=== PATIENT | male | born 1970 | race Caucasian/White ===

== ENCOUNTER 2017-11-17 10:18 | Day surgery (SDC) | payer BC ==
[~2017-11-17 10:18] MED LIST: Buffered Lidocaine 0.9% SYRIN* 5 ML/SYR SYRINGE INTRADERM ONE; Dexamethasone TAB* 4 MG PO ONE; DiMENhydriNATE IV* 50 MG/ML VIAL IV PUSH PRN; Famotidine IV* 10 MG/ML 2 ML (20 mg) IV ONE; Morphine INJ* 2 MG/ML 1 ML CARPUJECT IV PRN; Naloxone* 0.4 MG/ML 1 ML VIAL IV PRN; Ondansetron TAB* 4 MG PO ONE; PROCHLORPERAZINE INJ 5 MG/ML 2 ML VIAL IV PRN; Scopolamine 1.5 mg* PATCH TRANSDERM PRN; fentaNYL* 50 MCG/ML 2 ML VIAL (100 MCG VIAL) IV PRN; oxyCODONE/Acetamin 5/325 MG* TAB PO PRN
[2017-11-17] MEDS ORDERED: Dexamethasone TAB* 4 MG ONE (10:30)
[2017-11-17] MEDS ORDERED: Famotidine IV* 10 MG/ML 2 ML (20 mg) ONE (10:30)
[2017-11-17] MEDS ORDERED: Ondansetron ODT TAB* 4 MG ONE (10:30)
[2017-11-17] MEDS ORDERED: Buffered Lidocaine 0.9% SYRIN* 5 ML/SYR SYRINGE ONE (10:31)
[2017-11-17] MEDS ORDERED: Midazolam* 1 MG/ML 5 ML VIAL (5 MG) ONE (10:49)
[2017-11-17] MEDS ORDERED: fentaNYL* 50 MCG/ML 2 ML VIAL (100 MCG VIAL) ONE (10:49)
[2017-11-17] MEDS ORDERED: Oxymetazoline 0.05% NASAL SPR* 15 ML BTL ONE (11:12)
[2017-11-17] MEDS ORDERED: Lidocaine 4% TOPICAL* 50 ML TOP.SOLN ONE (11:12)
[2017-11-17] MEDS ORDERED: Lidocain 1% EPI 1:100,000 * 30 ML MDV ONE (11:12)
[2017-11-17] MEDS ORDERED: Triamcinolone Acetonide* 40 MG/ML 1 ML VIAL ONE (12:29)
[2017-11-17] MEDS ORDERED: oxyCODONE/Acetamin 5/325 MG* TAB ONE (13:28)
[2017-11-17 13:49] VITALS: BP 124/96
--- NOTE | 2017-11-18 07:02 | OP ---
DATE OF OPERATION: 11/17/17 - SDS DATE OF : 66 SURGEON: Aidan Ortega MD PRE-OP DIAGNOSIS: Chronic pansinusitis with nasal polyposis. POST-OP DIAGNOSIS: Chronic pansinusitis with nasal polyposis. OPERATIVE PROCEDURE: Bilateral endoscopic sinus surgery with image guidance, bilateral maxillary antrostomy with debridement of polyps, bilateral anteroposterior ethmoidectomy and left sphenoidotomy under laryngeal mask airway anesthesia. COMPLICATIONS: None. DISPOSITION: Good. SPECIMEN: Left and right sinus contents. DESCRIPTION OF PROCEDURE: The patient was taken to the operating room, placed in the supine position on the operating table. General anesthesia maintained with laryngeal mask airway anesthesia. He was turned and draped for the surgery and then he was registered to the [employer] image-guided sinus surgery set. His nose was packed with cottonoids impregnated with oxymetazoline and 4% lidocaine. After several minutes, these were removed and using the nasal endoscope, the nasal cavities were examined and used for surgery. He had polyps in his ostiomeatal units bilaterally, completely obstructing on the left side. His uncinate processes and his middle turbinates were injected with 1% lidocaine with epinephrine. Surgery was done bilaterally using the Blakesley to remove the polyps, the sickle knife to make a cut on the anterior uncinate, this was removed with Blakesley and polyps removed from the maxillary sinuses. The ostia were debrided and widened. The anterior ethmoids was entered with curettes and debrided. The grand lamella was entered into the posterior ethmoid and on the left side I went back into the sphenoid, and removed some polyps from the ostium of the sphenoid. Once the surgery was completed, Stammberger Sinu-Foam mixed with water and Kenalog was placed bilaterally. I used the image-guided seeker and suctions to verify location and entry into the ethmoids and left sphenoid. The patient tolerated this procedure well, no complications, transferred to the recovery room in stable condition. [id number]/CPS #: [id number] MTDD
[2017-11-20] MEDS ORDERED: Scopolamine PATCH Remove* 1 NOTE MISC PATCH OFF ONE (05:44)
== END 2017-11-17 13:50 | disposition home or self-care (01) ==
LOC: OR 10:18
PROVIDERS: ATTEND Otolaryngology
DX: J32.4 Chronic pansinusitis (principal); J33.8 Other polyp of sinus; Z87.891 Personal history of nicotine dependence
CPT/HCPCS: 88305; A9270-GY; J2250; J3010; J3301; J8540

== ENCOUNTER 2019-06-06 12:14 | Emergency (ER) | payer BC ==
[2019-06-06 13:18] VITALS: BP 123/76
--- NOTE | 2019-06-06 13:37 | UC ---
Respiratory Complaint HPI - HPI Summary HPI Summary: cough x 5 days cough is productive with yellow sputum worse with deep breathing, better with rest, + nasal congestion , pnd, wheezing, no fever, + chills body aches - History of Current Complaint Chief Complaint: UCRespiratory Stated Complaint: COUGH NASUA FEVER Time Seen by Provider: 06/06/19 13:09 Hx Obtained From: Patient Onset/Duration: Gradual Onset, Lasting Days - 5, Still Present Timing: Constant Severity Initially: Moderate Severity Currently: Moderate Pain Intensity: 0 Pain Scale Used: 0-10 Numeric Character: Cough: Productive Aggravating Factors: Exertion, Deep Breaths Alleviating Factors: Nothing Associated Signs And Symptoms: Positive: Chills, Wheezing, URI, Nasal Congestion. Negative: Dyspnea, Fever, Pleuritic Chest Pain - Allergies/Home Medications Allergies/Adverse Reactions: Allergies Allergy/AdvReac Type Severity Reaction Status Date / Time Penicillins Allergy Unknown Unknown Verified 06/06/19 13:13 Reaction Details PMH/Surg Hx/FS Hx/Imm Hx Respiratory History: Asthma Other History Of: Negative For: HIV - Surgical History Surgical History: Yes Surgery Procedure, Year, and Place: Right Bicep Repair, 2008 [facility] [place] - Family History Known Family History: Positive: Hypertension, Other - asthma Negative: Diabetes - Social History Alcohol Use: None Alcohol Amount: 1 DRINK MONTHLY Substance Use Type: None Smoking Status (MU): Never Smoked Tobacco - Immunization History Most Recent Influenza Vaccination: Not the Season Review of Systems All Other Systems Reviewed And Are Negative: Yes Constitutional: Positive: Chills, Fatigue Skin: Positive: Negative Eyes: Positive: Negative ENT: Positive: Sore Throat, Nasal Discharge Respiratory: Positive: Cough Cardiovascular: Positive: Negative Is Patient Immunocompromised?: No Physical Exam Triage Information Reviewed: Yes Appearance: Well-Appearing, No Pain Distress, Well-Nourished Vital Signs: Initial Vital Signs Temp 98.6 F 06/06/19 13:14 Pulse 84 06/06/19 13:14 Resp 16 06/06/19 13:14 BP 123/76 06/06/19 13:14 Pulse Ox 98 06/06/19 13:14 Vital Signs Reviewed: Yes Eye Exam: Normal Eyes: Positive: Conjunctiva Clear ENT: Positive: Normal ENT inspection, Hearing grossly normal, Nasal congestion, Nasal drainage, TMs normal Neck: Positive: Supple, Nontender, No Lymphadenopathy Respiratory: Positive: Chest non-tender, Lungs clear, Normal breath sounds Cardiovascular: Positive: RRR, No Murmur, Pulses Normal Respiratory Course/Dx - Differential Dx/Diagnosis Provider Diagnosis: Bronchitis Discharge ED - Sign-Out/Discharge Documenting (check all that apply): Patient Departure All imaging exams completed and their final reports reviewed: No Studies - Discharge Plan Condition: Stable Disposition: HOME Prescriptions: predniSONE 20 mg TAB [Deltasone 20 MG TAB*] 40 mg PO DAILY #10 tab Patient Education Materials: Acute Bronchitis (ED) Referrals: No Primary Care Phys,NOPCP [Primary Care Provider] - If Needed - Billing Disposition and Condition Condition: STABLE Disposition: Home
== END 2019-06-06 13:34 | disposition home or self-care (01) ==
LOC: UCCORT 12:14
DX: J45.909 Unspecified asthma, uncomplicated (principal); J02.9 Acute pharyngitis, unspecified; R09.89 Other specified symptoms and signs involving the circulatory and respiratory systems; Z88.0 Allergy status to penicillin
CPT/HCPCS: 99212; G0463